=== PATIENT | female | born 1950 | race Caucasian/White ===

== ENCOUNTER 2025-01-19 08:07 | Outpatient (OUT) | payer MEDICARE, SELFPAY ==
--- NOTE | 2025-01-19 | XR_ITS ---
The [address] [address] Patient Name: JUAN C OROSCO MRN: [id number] date: 1950 Sex: F Assigned Patient Location: [facility] Current Patient Location: [facility] Accession/Order Number: [id number] Exam Date: 01/19/2025 11:10 Report Date: 01/19/2025 14:23 At the request of: MADELEINE GALICIA DO Procedure: XR knee LT 4V LEFT KNEE - 4 views COMPARISON: None CLINICAL DATA: Chronic left knee pain. No reported injury. AP, lateral, internal oblique and patellar views were obtained. There is osteopenia. No acute fractures are identified. No dislocation is seen. There is no patellar subluxation. There is narrowing at the medial tibiofemoral joint compartment. Tricompartment marginal spurring is present. There is a small enthesophyte at the insertion of quadriceps tendon. There is a small amount of joint fluid. No focal soft tissue swelling is identified. XR/XR knee LT 4V IMPRESSION: OSTEOPENIA AND DEGENERATIVE CHANGES. NO ACUTE BONY FINDINGS. Impression dictated by: Freda Guerin M.D. 01/19/2025 2:23 PM Dictation Location: [place] [address] Electronically authenticated by: [id number] Y Date: 01/19/2025 14:23
== END 2025-01-19 08:08 | disposition home or self-care (01) ==
LOC: RAD 08:08
PROVIDERS: PCP Family Medicine; Visit Provider Orthopaedic Surgery Orthopaedic Trauma
DX: M25.562 Pain in left knee (principal); M85.88 Other specified disorders of bone density and structure, other site
CPT/HCPCS: 73564